=== PATIENT | male | born 1960 | race Caucasian/White ===

== ENCOUNTER 2020-03-22 12:47 | Emergency (ER) | payer OTHER ==
[~2020-03-22] VITALS: Ht 182.9 cm; Wt 99.8 kg
[2020-03-22] MEDS ORDERED: ERYT.5TO BOTHEYES (17:05)
[2020-03-22] MEDS ORDERED: Zovirax800 MG PO (17:05)
== END 2020-03-22 17:30 | disposition home or self-care (01) ==
LOC: ER 12:47
DX: B02.30 Zoster ocular disease, unspecified (principal)
CPT/HCPCS: 99283